=== PATIENT | male | born 1950 | race American Indian/Alaskan Native ===

== ENCOUNTER 2016-07-10 08:53 | Outpatient (CLI) | payer BC ==
[2016-07-10 09:23] LABS: Hematocrit 40.6 % (35.5-45.6); Hemoglobin 13.1 gm/dl (11.8-15.2)
[2016-07-10 09:41] LABS: Albumin 3.9 g/dL (3.9-5); BUN/Creatinine Ratio 8.97; Calcium 9.2 mg/dL (8.4-10.2); Chloride 100.2 mmol/L (98-107); Potassium 5.4 mmol/L (3.6-5.0)
== END 2016-07-10 08:54 | disposition home or self-care (01) ==
LOC: LAB 08:53
PROVIDERS: ATTEND Internal Medicine Nephrology
DX: N18.5 Chronic kidney disease, stage 5 (principal); E87.5 Hyperkalemia
CPT/HCPCS: 36415; 80048; 82040; 82570; 84100; 84156; 85014; 85018

== ENCOUNTER 2017-01-07 08:00 | Inpatient (IN) | payer BC, MEDICARE ==
--- NOTE | 2017-01-17 14:52 | Admit Criteria Form ---
Admission Criteria Documentation: AMBULATORY SURGERY EXCEPTION CRITERIA Ambulatory Surgery Exception Criteria ( Place 'X' for any and all applicable criteria): Surgery or procedure performed on ambulatory basis may require inpatient stay for[A] ANY ONE of the following(1)(2)(3)(4)(5)(6)(7)(8)(9): [] I. A preoperative situation, condition, or finding that warrants inpatient stay as indicated by ANY ONE of the following: [] a) Inpatient care needed because of severity of a disease or condition rather than the surgery (eg, severe cardiac or respiratory disease, severe infection) (15) (16 ) (17) (18) [] b) Emergent procedure (eg, angioplasty for acute ischemia)(19) [] c) Complex surgical approach or situation as indicated by ANY ONE of the following(3): [] i) Open approach needed instead of usual endoscopic, transcatheter, or other less invasive procedure [] ii) Difficult approach because of previous operation [] iii) Airway monitoring required after open neck procedures(20)(21) [] iv) Large mass requiring unusually extensive dissection [] v) Additional complicating feature requiring inpatient care (eg, drain management)(22(23): [] d) Major surgery in a pt with high anesthetic risk as indicated by ANY ONE of the following (2)(3)(5)(7)(8): [] i) ASA risk class III or higher (severe systemic disease impairing function) [D] [] ii) Advanced age (eg, older than 85 years)(14)(24) [] iii) Symptomatic heart failure(25) [] iv) Symptomatic asthma or COPD(8)(21) [] v) Morbid obesity with hemodynamic or respiratory problems(20)( 21)(26)(27) [] vi) Obstructive sleep apnea(20)(21) [] vii) Former premature infants who are younger than 60 weeks [] viii) High risk for severe postoperative abnormalities (eg, severe postoperative hypocalcemia after parathyroidectomy for severe hyperparathyroidism)(27)( 28) [] ix) Unstable angina(25) [] e) Drug-related risk requiring inpatient stay as indicated by ANY ONE of the following(5)(10)(14)(32)(33) [] i) Procedure requires discontinuing drugs or other therapy (eg , antiarrhythmic medication, antiseizure medication), which necessitates inpatient observation or treatment.(18)(31) [] ii) Major surgery and high risk drug use as indicated by ANY ONE of the following: [] 1) Active abuse of cocaine or similar drug [] 2) Monoamine oxidase inhibitor use [] 3) Other drug identified as posing risk [] f) Inadequate outpatient care situation as indicated by ANY ONE of the following(5)(10)(14)(32)(33) [] i) Patient lives remote from medical facility and procedure has urgent complication potential, and temporary nearby residence cannot be arranged [] ii) Patient will have postprocedure incapacitation and inadequate assistance at home, or alternative level of care cannot be arranged. [] iii) Patient will have long general anesthesia or procedure side effect resolution time, and competent person to stay with patient on first postoperative night at home or alternative level of care cannot be arranged. []iv) Other inadequate outpatient situation that cannot be handled by other means [] II. A perioperative event, condition, or finding that warrants inpatient stay as indicated by ANY ONE of the following (1)(2)(3): [] a) Inadequate physiologic recovery: cardiovascular, respiratory, or hemodynamic status not normal or near preoperative baseline(18) [] b) Hemodynamic instability [] c) Patient not alert with near normal or baseline mental status [] d) Temperature not normal or as expected and not appropriate for outpatient treatment of condition [] e) Ambulatory or appropriate activity level status not yet achieved post procedure [E](34)(35)(36) [] f) Operative site not appropriate (eg, unexpected or excessive drainage or bleeding) [] g) Postoperative effects not resolved or adequately managed (eg, significant pain or vomiting not appropriate for outpatient or next level of care)(10)(12) [] h) Complicating features requiring inpatient care as indicated by ANY ONE of the following(37): [] i) Severe complications of procedure (eg, bowel injury, airway compromise, vascular injury,severe hemorrhage) [] ii) Extensive (eg, dissection far beyond usual scope of procedure ) or prolonged (eg, 120 minutes beyond usual) surgery needed requiring inpatient postoperative care [] iii) Conversion to an open or complex procedure that requires inpatient care (eg, open vs laparoscopic cholecystectomy, abdominal vs vaginal hysterectomy)(38) [] iv) Comorbid condition or test result identified during or post procedure that requires inpatient care (7) [] v) Malignant hyperthermia(30) [] vi) Other complicating feature requiring inpatient care(22)(23) Inpatient stay may be needed until ALL of the following are present (1)(2)(3)(4) (5)(6)(10)(14)(33)(40): []a) Physiologic recovery: cardiovascular, respiratory, and hemodynamic status normal or near preoperative baseline []b) Hemodynamic stability []c) Patient alert, with near normal or baseline mental status []d) Temperature appropriate: patient afebrile or temperature appropriate for outpt treatment of condition []e) Activity level appropriate: ambulatory or appropriate activity level post procedure []f) Operative site appropriate as indicated by ALL of the following: []i) Site dry or with expected drainage []ii) Any blood noted is as expected for procedure. []g) Postoperative effects resolved or managed as indicated by ALL of the following: []i) Pain management appropriate for outpatient (or next level of) care(10) []ii) Minimal nausea and vomiting: if present, successfully treated with oral medication(12) []iii) Headache, dizziness, or drowsiness (if present) are mild. []h) Voiding status acceptable as indicated by ANY ONE of the following: []i) Voiding spontaneously []ii) No voiding but instructions given for follow-up in 6 to 8 hours []iii) Urinary catheter in place, and instructions given for follow-up []i) Complicating features requiring inpatient care manageable at a lower level of care(37) []j) Comorbid conditions manageable at a lower level of care(37) The original [employer] content created by [employer] has been revised. The portions of the content which have been revised are identified through the use of italic text or in bold, and [email or web address] has neither reviewed nor approved the modified material. All other unmodified content is copyright [employer]. Please see references footnoted in the original [employer] edition 2016
--- NOTE | 2017-01-18 09:26 | Admit Criteria Form ---
Admission Criteria Documentation: AMBULATORY SURGERY EXCEPTION CRITERIA Ambulatory Surgery Exception Criteria ( Place 'X' for any and all applicable criteria): Surgery or procedure performed on ambulatory basis may require inpatient stay for[A] ANY ONE of the following(1)(2)(3)(4)(5)(6)(7)(8)(9): [X] I. A preoperative situation, condition, or finding that warrants inpatient stay as indicated by ANY ONE of the following: [X] a) Inpatient care needed because of severity of a disease or condition rather than the surgery (eg, severe cardiac or respiratory disease, severe infection) (15) (16 ) (17) (18) [] b) Emergent procedure (eg, angioplasty for acute ischemia)(19) [] c) Complex surgical approach or situation as indicated by ANY ONE of the following(3): [] i) Open approach needed instead of usual endoscopic, transcatheter, or other less invasive procedure [] ii) Difficult approach because of previous operation [] iii) Airway monitoring required after open neck procedures(20)(21) [] iv) Large mass requiring unusually extensive dissection [] v) Additional complicating feature requiring inpatient care (eg, drain management)(22(23): [] d) Major surgery in a pt with high anesthetic risk as indicated by ANY ONE of the following (2)(3)(5)(7)(8): [] i) ASA risk class III or higher (severe systemic disease impairing function) [D] [] ii) Advanced age (eg, older than 85 years)(14)(24) [] iii) Symptomatic heart failure(25) [] iv) Symptomatic asthma or COPD(8)(21) [] v) Morbid obesity with hemodynamic or respiratory problems(20)( 21)(26)(27) [] vi) Obstructive sleep apnea(20)(21) [] vii) Former premature infants who are younger than 60 weeks [] viii) High risk for severe postoperative abnormalities (eg, severe postoperative hypocalcemia after parathyroidectomy for severe hyperparathyroidism)(27)( 28) [] ix) Unstable angina(25) [] e) Drug-related risk requiring inpatient stay as indicated by ANY ONE of the following(5)(10)(14)(32)(33) [] i) Procedure requires discontinuing drugs or other therapy (eg , antiarrhythmic medication, antiseizure medication), which necessitates inpatient observation or treatment.(18)(31) [] ii) Major surgery and high risk drug use as indicated by ANY ONE of the following: [] 1) Active abuse of cocaine or similar drug [] 2) Monoamine oxidase inhibitor use [] 3) Other drug identified as posing risk [] f) Inadequate outpatient care situation as indicated by ANY ONE of the following(5)(10)(14)(32)(33) [] i) Patient lives remote from medical facility and procedure has urgent complication potential, and temporary nearby residence cannot be arranged [] ii) Patient will have postprocedure incapacitation and inadequate assistance at home, or alternative level of care cannot be arranged. [] iii) Patient will have long general anesthesia or procedure side effect resolution time, and competent person to stay with patient on first postoperative night at home or alternative level of care cannot be arranged. []iv) Other inadequate outpatient situation that cannot be handled by other means [] II. A perioperative event, condition, or finding that warrants inpatient stay as indicated by ANY ONE of the following (1)(2)(3): [] a) Inadequate physiologic recovery: cardiovascular, respiratory, or hemodynamic status not normal or near preoperative baseline(18) [] b) Hemodynamic instability [] c) Patient not alert with near normal or baseline mental status [] d) Temperature not normal or as expected and not appropriate for outpatient treatment of condition [] e) Ambulatory or appropriate activity level status not yet achieved post procedure [E](34)(35)(36) [] f) Operative site not appropriate (eg, unexpected or excessive drainage or bleeding) [] g) Postoperative effects not resolved or adequately managed (eg, significant pain or vomiting not appropriate for outpatient or next level of care)(10)(12) [] h) Complicating features requiring inpatient care as indicated by ANY ONE of the following(37): [] i) Severe complications of procedure (eg, bowel injury, airway compromise, vascular injury,severe hemorrhage) [] ii) Extensive (eg, dissection far beyond usual scope of procedure ) or prolonged (eg, 120 minutes beyond usual) surgery needed requiring inpatient postoperative care [] iii) Conversion to an open or complex procedure that requires inpatient care (eg, open vs laparoscopic cholecystectomy, abdominal vs vaginal hysterectomy)(38) [] iv) Comorbid condition or test result identified during or post procedure that requires inpatient care (7) [] v) Malignant hyperthermia(30) [] vi) Other complicating feature requiring inpatient care(22)(23) Inpatient stay may be needed until ALL of the following are present (1)(2)(3)(4) (5)(6)(10)(14)(33)(40): []a) Physiologic recovery: cardiovascular, respiratory, and hemodynamic status normal or near preoperative baseline []b) Hemodynamic stability []c) Patient alert, with near normal or baseline mental status []d) Temperature appropriate: patient afebrile or temperature appropriate for outpt treatment of condition []e) Activity level appropriate: ambulatory or appropriate activity level post procedure []f) Operative site appropriate as indicated by ALL of the following: []i) Site dry or with expected drainage []ii) Any blood noted is as expected for procedure. []g) Postoperative effects resolved or managed as indicated by ALL of the following: []i) Pain management appropriate for outpatient (or next level of) care(10) []ii) Minimal nausea and vomiting: if present, successfully treated with oral medication(12) []iii) Headache, dizziness, or drowsiness (if present) are mild. []h) Voiding status acceptable as indicated by ANY ONE of the following: []i) Voiding spontaneously []ii) No voiding but instructions given for follow-up in 6 to 8 hours []iii) Urinary catheter in place, and instructions given for follow-up []i) Complicating features requiring inpatient care manageable at a lower level of care(37) []j) Comorbid conditions manageable at a lower level of care(37) The original [employer] content created by [employer] has been revised. The portions of the content which have been revised are identified through the use of italic text or in bold, and [employer] has neither reviewed nor approved the modified material. All other unmodified content is copyright [employer]. Please see references footnoted in the original [employer] edition 2016 Admission Criteria Met: Yes
--- NOTE | 2017-01-18 09:53 | Anesthesia Consultation ---
Anesthesia Consult and Med Hx Date of service: 01/18/17 - Airway Anesthetic Teeth Evaluation: Dentures (upper) ROM Head & Neck: Adequate Mental/Hyoid Distance: Adequate Mallampati Class: Class II Intubation Access Assessment: Probably Good - Pulmonary Exam CTA: Yes - Cardiac Exam Cardiac Exam: RRR - Pre-Operative Health Status ASA Pre-Surgery Classification: ASA2 Proposed Anesthetic Plan: General - Pulmonary Hx Smoking: No Hx Sleep Apnea: No (MILLER PRE SCREEN HIGH RISK) - Cardiovascular System Hx Hypertension: Yes (X 40 YRS) Hx Heart Attack/AMI: No - Central Nervous System Hx Neuromuscular Disorder: No (Gout) Hx Seizures: No CVA: No - Gastrointestinal Hx Gastroesophageal Reflux Disease: No - Endocrine Hx Renal Disease: No Hx Liver Disease: No Hx Non-Insulin Dependent Diabetes: No - Hematic Hx Anemia: No Hx Sickle Cell Disease: No - Other Systems Hx Alcohol Use: No Hx Cancer: Yes (prostate ca) Hx Obesity: Yes - Additional Comments Anesthesia Medical History Comments: NAC
[2017-01-18 09:59] LABS: Basophils % (Auto) 1.2 % (0.0-1.8); Eosinophils % (Auto) 5.1 % (0.0-4.3); Hematocrit 42.4 % (35.5-45.6); Hemoglobin 13.9 gm/dl (11.8-15.2); Mean Corpuscular HGB Conc 33 % (32-34); Mean Corpuscular Hemoglobin 29 pg (28-32); Mean Corpuscular Volume 89 fl (84-94); Platelet Count 338 K/mm3 (140-440); Red Blood Count 4.78 M/mm3 (3.65-5.03); Red Cell Distribution Width 14.4 % (13.2-15.2)
[2017-01-18 10:25] LABS: BUN/Creatinine Ratio 9.01; Bilirubin,Total 0.3 mg/dL (0.1-1.2); Calcium 9.2 mg/dL (8.4-10.2); Chloride 103.7 mmol/L (98-107); Total Protein 8.2 g/dL (6.3-8.2)
[2017-01-18 10:35] LABS: INR 1.04 (0.87-1.13)
[2017-01-18 10:38] LABS: Partial Thromboplastin Time 30.9 Sec. (24.2-36.6)
[2017-01-21] MEDS ORDERED: ANCEF/STERILE WATER 2 GM/20 ML IV NR (00:01)
[2017-01-21] MEDS ORDERED: VERSED IV NR (05:00)
[2017-01-21] MEDS ORDERED: PEPCID PO NR (05:00)
[2017-01-21] MEDS ORDERED: NACL BACTERIOSTATIC INFILTRATI ONE (06:36)
[2017-01-21] MEDS: NACL 0.9% 1000 ML 1,000 ML IV SCH ×2 (07:10→22:10)
[2017-01-21] MEDS ORDERED: DIPRIVAN 10 MG/ML IV ONE (07:30)
[2017-01-21] MEDS ORDERED: DILAUDID ONE (07:31)
[2017-01-21] MEDS ORDERED: DILAUDID IV PRN ×2 (07:35→20:07)
--- NOTE | 2017-01-21 07:35 | Anesthesia Day of Surgery ---
Anesthesia Day of Surgery - Day of Surgery Patient Examined: Yes Patient H&P Reviewed: Yes Patient is NPO: Yes
[2017-01-21] MEDS ORDERED: MARCAINE-EPI 0.5%-1:200,000 INFILTRATI ONE (07:44)
[2017-01-21] MEDS ORDERED: MARCAINE-EPI/PF 0.5%-1:200,000 INFILTRATI ONE (07:44)
[2017-01-21] MEDS ORDERED: DECADRON ONE ×2 (07:44→09:35)
[2017-01-21] MEDS ORDERED: XYLOCAINE 1% 20 mL ONE (07:44)
[2017-01-21] MEDS ORDERED: CALCIUM CHLORIDE IV ONE ×2 (07:56→10:51)
[2017-01-21] MEDS ORDERED: ACD-A 500 ML IV ONE (07:56)
[2017-01-21] MEDS ORDERED: THROMBIN (BOVINE) TP ONE ×2 (07:57→10:51)
[2017-01-21] MEDS ORDERED: SUBLIMAZE IV ONE (08:00)
[2017-01-21] MEDS ORDERED: NEURONTIN PO NR (08:00)
[2017-01-21] MEDS ORDERED: ZOFRAN IV PRN ×2 (08:00→10:55)
[2017-01-21] MEDS ORDERED: NACL 0.9% 1000 ML 1,000 ML ONE ×2 (08:34→10:47)
[2017-01-21] MEDS ORDERED: ZEMURON IV ONE (08:34)
[2017-01-21] MEDS ORDERED: XYLOCAINE MPF 2% ONE (08:34)
[2017-01-21] MEDS ORDERED: ePHEDrine SULFATE ONE (09:01)
[2017-01-21] MEDS ORDERED: ZOFRAN ONE (09:35)
[2017-01-21] MEDS ORDERED: ROBINUL ONE (09:35)
[2017-01-21] MEDS ORDERED: NEOSTIGMINE ONE (09:35)
--- NOTE | 2017-01-21 10:49 | Short Stay Summary ---
Short Stay Documentation Date of service: 01/21/17 - History H&P: obtained from office - Allergies and Medications Current Medications: Allergies No Known Allergies Allergy (Verified 01/04/17 17:13) Home Medications Medication Instructions Recorded Confirmed Last Taken Type Furosemide [Lasix] 80 mg PO 4XW 01/04/17 01/21/17 01/21/17 04:00 History cloNIDine [Catapres] 0.1 mg PO TID 01/04/17 01/21/17 01/21/17 04:00 History Colchicine [Colcrys] 0.6 mg PO TID PRN 01/21/17 01/21/17 01/07/17 History Mv-Mn/FA/Vit K/Lycop/Lut/Coq10 1 each PO QDAY 01/21/17 01/21/17 01/14/17 History [Daily Multivitamin Capsule] Terazosin HCl 10 mg PO QHS 01/21/17 01/21/17 01/21/17 04:00 History amLODIPine [Norvasc] 10 mg PO BID 01/21/17 01/21/17 01/21/17 04:00 History Active Medications Cefazolin Sodium (Ancef/Sterile Water 2 Gm/20 Ml) 2 gm IV PREOP NR Stop: 01/21/17 23:00 Famotidine (Pepcid) 20 mg PO PREOP NR Stop: 01/21/17 12:00 Last Admin: 01/21/17 07:10 Dose: 20 mg Gabapentin (Neurontin) 300 mg PO PREOP NR Stop: 01/21/17 12:00 Last Admin: 01/21/17 07:43 Dose: 300 mg Hydromorphone HCl (Dilaudid) 0.5 mg IV Q10MIN PRN PRN Reason: Pain , Severe (7-10) Stop: 01/21/17 15:00 Sodium Chloride (Nacl 0.9% 1000 Ml) 1,000 mls @ 100 mls/hr IV DIRECT ROGE Last Admin: 01/21/17 07:10 Dose: 100 mls/hr Midazolam HCl (Versed) 2 mg IV PREOP NR Stop: 01/21/17 15:00 Last Admin: 01/21/17 07:52 Dose: 2 mg - Brief post op/procedure progress note Date of procedure: 01/21/17 Pre-op diagnosis: prostate cancer Post-op diagnosis: same Procedure: robotic prostatectomy Anesthesia: PAMELLAA Surgeon: VARUN GONSALEZ Pants Maker: MARIO GUZMAN Estimated blood loss: other (300cc) Pathology: list (prostate) Specimen disposition: to lab Condition: stable - Hospital course Hospital course: myke cartwright, post op info on chart at bedside jordy removed seen by nephrology for high K+ (treated) dc home - Disposition Condition at discharge: Stable Disposition: DC-01 TO HOME OR SELFCARE Short Stay Discharge Plan Additional Instructions: Must crush meds for now. Do not take whole pills. No heavy lifting, pushing, pulling. Follow up with: PRIMARY CARE, [Primary Care Provider] - 7 Days
[2017-01-21] MEDS ORDERED: NACL 0.9% IR ONE ×2 (10:50→10:51)
[2017-01-21] MEDS ORDERED: ACD-A IV ONE (10:50)
[2017-01-21] MEDS ORDERED: WATER FOR IRRIG STERILE IR ONE (10:50)
[2017-01-21] MEDS ORDERED: TYLENOL PO PRN (10:55)
[2017-01-21] MEDS ORDERED: AMBIEN PO PRN (10:55)
[2017-01-21] MEDS ORDERED: NORCO 5/325 PO PRN (10:55)
[2017-01-21] MEDS ORDERED: COLCRYS PO PRN (10:59)
[2017-01-21] MEDS ORDERED: NACL 0.9% 1000 ML 1,000 ML IV SCH (11:00)
[2017-01-21] MEDS ORDERED: LASIX PO SCH (11:00)
--- NOTE | 2017-01-21 11:48 | Operative Report ---
PREOPERATIVE DIAGNOSES: Prostate cancer, [place] 6. POSTOPERATIVE DIAGNOSES: Prostate cancer, [place] 6. SECONDARY DIAGNOSES: Hypertension, renal insufficiency. PROCEDURE: Robotic-assisted laparoscopic prostatectomy. SURGEON: Shahid Toribio MD VISUAL MERCHANDISING ASSISTANT: Des Harrison. ANESTHESIA: General. ESTIMATED BLOOD LOSS: 300 mL. FLUIDS: Crystalloid 150 mL of Cell Saver. COMPLICATIONS: No complications. DRAINS: Abelardo-Elmore drain x 1. INDICATIONS: This patient is a 66-year-old gentleman seen in the office for an elevated PSA of 6.3 in 2015. He underwent transrectal ultrasound and biopsies of prostate. He is found to have [place] 6 adenocarcinoma of the prostate. At that time, he elected active surveillance treatment for PSA above 10. However, in the interim, the patient developed renal insufficiency and was undergoing evaluation for kidney transplant at [facility] (contact his Leeann Cole, ). The patient was seen by the transplant team earlier this year. They indicated he needs definitive therapy of his cancer before they could proceed. We discussed options with the patient and he agreed to proceed with surgical intervention. His primary care physician is Dr. Shaun Ayoub. DESCRIPTION OF PROCEDURE: The patient was taken to the operative suite, placed in a supine position. After adequate general anesthesia, placed in a modified dorsal lithotomy position, prepped and draped in sterile fashion. Grimes catheter was placed on the operative field. Towel clips were placed. A 1 cm incision was made in the skin at the supraumbilical area anterior traction. Veress needle was used for drop test, which was negative. Opening pressure was 2 cm of water, CO2 insufflation to 15 cm of water was performed without difficulty. Abdominal wall was marked from the pubic symphysis to the midline in the cephalad position 15 cm and then 9 cm lateral. Additional 9 cm lateral was used for placement of the robotic and helper ports. A 10 mm helper port on the right as well as 5 mm port just above the midline. Using 0-degree lens the camera port was placed under direct vision without difficulty. No intra-abdominal injury. No signs of metastasis. The rest of the ports were placed under direct vision. The patient was then placed in exaggerated Trendelenburg position. The second arch behind the bladder was identified and scored exposing the seminal vesicles and vas deferens, which were dissected out and vas deferens clamped and cut. The posterior dissection to the apex of the prostate was performed without difficulty. Copious irrigation was performed. Adequate hemostasis was achieved. Next, attention was taken to the anterior abdominal wall, which was scored lateral to the lateral umbilical ligament and then across the midline exposing the pubic rami. Bladder flap was dropped exposing the endopelvic fascia, which was opened bilaterally. Dorsal vein complex was controlled using a 45 mm vascular stapler. The endopelvic fascia was opened bilaterally exposing the bladder neck, which was transected anteriorly exposing the Grimes catheter. Anterior traction was then applied to the Grimes to allow posterior dissection of the bladder neck, which exposed the seminal vesicles, vas deferens. The ureteral orifices could be appreciated and were uninjured. Lateral pedicles were controlled with a 45 mm vascular stapler. The neurovascular bundle could not be appreciated bilaterally. Sharp dissection was used to dissect the rest of the lateral pedicles to the apex of the prostate in an athermal fashion. Prostate was removed, placed in the EndoCatch bag. Copious irrigation again was performed. Adequate hemostasis was achieved. The bladder neck was reconstructed to allow placement of new 18-Swiss Grimes catheter. Reconstruction was performed at the 5 o'clock and 7 o'clock positions using 2-0 Vicryl in interrupted fashion. Double arm V-Loc was used for running anastomosis starting at the 6 o'clock position of the bladder and urethra. A new Grimes catheter was advanced. The anastomosis was cinched tight. A 15 mL of water in the balloon irrigated, no leak. The V-Loc stitch was placed in suprapubic and the posterior rectus fascia to aid with continents. Platelet membrane was wrapped around the urethra as well as platelet-rich plasma was injected and platelet poor plasma around the urethra. A 10 mm Abelardo-Elmore drain was brought out through the left-sided port. Robotic cart was undocked. The supraumbilical incision was extended to allow removal of the prostate. Rectus fascia was then closed with #1 Vicryl in a [id number] fashion. Skin was closed with 3-0 Vicryl in interrupted fashion. Grimes catheter site port was tied over and secured with 0 silk in interrupted fashion. The patient tolerated the procedure well. He was extubated, taken to recovery room. He will be observed overnight and go home on [facility] and [facility]. JOB# [id number] GIL/VIDA
[2017-01-21 12:16] LABS: Basophils % (Auto) 0.4 % (0.0-1.8); Eosinophils % (Auto) 0.5 % (0.0-4.3); Hematocrit 39.4 % (35.5-45.6); Hemoglobin 12.8 gm/dl (11.8-15.2); Mean Corpuscular HGB Conc 32 % (32-34); Mean Corpuscular Hemoglobin 29 pg (28-32); Mean Corpuscular Volume 90 fl (84-94); Platelet Count 328 K/mm3 (140-440); Red Blood Count 4.39 M/mm3 (3.65-5.03); Red Cell Distribution Width 14.5 % (13.2-15.2); White Blood Count 15.2 K/mm3 (4.5-11.0)
[2017-01-21 12:40] LABS: BUN/Creatinine Ratio 8.64; Calcium 8.4 mg/dL (8.4-10.2); Chloride 101.9 mmol/L (98-107); Potassium 4.6 mmol/L (3.6-5.0)
[2017-01-21] MEDS: MORPHINE IV PRN ×3 (13:43→20:01)
[2017-01-21] MEDS: ANCEF/NS 1 GM/50 ML 1 GM/50 ML BAG IV SCH ×2 (13:44→21:27)
[2017-01-21] MEDS: CATAPRES PO SCH ×2 (14:00→20:02)
--- NOTE | 2017-01-21 16:31 | Post Anesthesia Evaluation ---
- Post Anesthesia Evaluation Patient Participated: Yes Airway Patent: Yes Stable Respiratory Function: Yes Nausea/Vomiting: No Temp > 96.8F: Yes Pain Manageable: Yes Adequeate Hydration: Yes Anesthesia Complications: No Block Receding Appropriately: Not Applicable Patient on Ventilator: No
[2017-01-21] MEDS ORDERED: ATIVAN PO PRN (20:05)
--- NOTE | 2017-01-21 20:34 | Consultation ---
History of Present Illness - Reason for Consult Consult date: 01/21/17 Medical management Requesting physician: VARUN GONSALEZ - History of Present Illness S/p Robotic prostatectomy-post op doing well.No complications Past History Past Medical History: hypertension, renal failure Social history: no significant social history, lives with family Family history: hypertension Medications and Allergies Allergies Allergy/AdvReac Type Severity Reaction Status Date / Time No Known Allergies Allergy Verified 01/04/17 17:13 Home Medications Medication Instructions Recorded Confirmed Last Taken Type Furosemide [Lasix] 80 mg PO 4XW 01/04/17 01/21/17 01/21/17 04:00 History cloNIDine [Catapres] 0.1 mg PO TID 01/04/17 01/21/17 01/21/17 04:00 History Colchicine [Colcrys] 0.6 mg PO TID PRN 01/21/17 01/21/17 01/07/17 History Mv-Mn/FA/Vit K/Lycop/Lut/Coq10 1 each PO QDAY 01/21/17 01/21/17 01/14/17 History [Daily Multivitamin Capsule] Terazosin HCl 10 mg PO QHS 01/21/17 01/21/17 01/21/17 04:00 History amLODIPine [Norvasc] 10 mg PO BID 01/21/17 01/21/17 01/21/17 04:00 History Active Meds: Active Medications Acetaminophen (Tylenol) 650 mg PO Q4H PRN PRN Reason: Pain, Mild (1-3)/Fever > 100.5 Acetaminophen/Hydrocodone Bitart ([place] 5/325) 2 each PO Q4H PRN PRN Reason: Pain, Moderate (4-6) Amlodipine Besylate (Norvasc) 10 mg PO BID ROGE Cefazolin Sodium (Ancef/Sterile Water 2 Gm/20 Ml) 2 gm IV PREOP NR Stop: 01/21/17 23:00 Clonidine HCl (Catapres) 0.1 mg PO TID RGOE Last Admin: 01/21/17 20:02 Dose: 0.1 mg Colchicine (Colcrys) 0.6 mg PO TID PRN PRN Reason: GOUT Hydromorphone HCl (Dilaudid) 1 mg IV Q4H PRN PRN Reason: Pain Sodium Chloride (Nacl 0.9% 1000 Ml) 1,000 mls @ 100 mls/hr IV DIRECT ROGE Last Admin: 01/21/17 07:10 Dose: 100 mls/hr Sodium Chloride (Nacl 0.9% 1000 Ml) 1,000 mls @ 100 mls/hr IV DIRECT ROGE Lorazepam (Ativan) 0.5 mg PO Q8H PRN PRN Reason: Anxiety Morphine Sulfate (Morphine) 4 mg IV Q4H PRN PRN Reason: Pain , Severe (7-10) Last Admin: 01/21/17 20:01 Dose: 4 mg Multivitamins/Minerals (Theragran-M Tab) 1 each PO QDAY ROGE Ondansetron HCl (Zofran) 4 mg IV Q8H PRN PRN Reason: Nausea And Vomiting Last Admin: 01/21/17 13:43 Dose: 4 mg Prazosin HCl (Minipress) 5 mg PO HS ROGE Zolpidem Tartrate (Ambien) 5 mg PO QHS PRN PRN Reason: Sleep Review of Systems All systems: negative Exam - Constitutional Vitals: Temp Pulse Resp BP Pulse Ox 97.4 F L 85 18 162/79 98 01/21/17 19:50 01/21/17 20:02 01/21/17 20:01 01/21/17 20:02 01/21/17 19:50 General appearance: Present: no acute distress, well-nourished - EENT Eyes: Present: PERRL ENT: hearing intact, clear oral mucosa - Neck Neck: Present: supple, normal ROM - Respiratory Respiratory effort: normal Respiratory: bilateral: CTA - Cardiovascular Heart Sounds: Present: S1 & S2. Absent: rub, click - Extremities Extremities: pulses symmetrical, No edema Peripheral Pulses: within normal limits - Abdominal General gastrointestinal: Present: soft, non-tender, non-distended, normal bowel sounds Male genitourinary: Present: normal - Integumentary Integumentary: Present: clear, warm, dry - Musculoskeletal Musculoskeletal: gait normal, strength equal bilaterally - Psychiatric Psychiatric: appropriate mood/affect, intact judgment & insight - Neurologic Neurologic: CNII-XII intact, moves all extremities Results - Labs CBC & Chem 7: 01/21/17 12:12 01/22/17 02:46 Labs: Abnormal lab results 01/21/17 01/21/17 Range/Units 12:12 12:12 WBC 15.2 H (4.5-11.0) K/mm3 Seg Neutrophils % 82.5 H (40.0-70.0) % Seg Neutrophils # 12.5 H (1.8-7.7) K/mm3 Carbon Dioxide 19 L (22-30) mmol/L BUN 51 H (9-20) mg/dL Creatinine 5.9 H (0.8-1.5) mg/dL Glucose 180 H (75-100) mg/dL Short CBC 01/21/17 Range/Units 12:12 WBC 15.2 H (4.5-11.0) K/mm3 Hgb 12.8 (11.8-15.2) gm/dl Hct 39.4 (35.5-45.6) % Plt Count 328 (140-440) K/mm3 [facility] 01/21/17 01/22/17 12:12 02:46 Sodium 139 138 Potassium 4.6 5.2 H Chloride 101.9 100.6 Carbon Dioxide 19 L 19 L BUN 51 H 54 H Creatinine 5.9 H 5.8 H Glucose 180 H 135 H Calcium 8.4 8.9 Assessment and Plan - Patient Problems (1) Status post robot-assisted surgical procedure Current Visit: Yes Status: Acute Plan to address problem: s/p robotic Prostatectomy-Doing well (2) HTN (hypertension) Current Visit: Yes Status: Chronic Qualifiers: Hypertension type: essential hypertension Qualified Code(s): I10 - Essential (primary) hypertension Plan to address problem: Cont Clonidine and amlodipine (3) CKD (chronic kidney disease) Current Visit: Yes Status: Chronic Qualifiers: Chronic kidney disease stage: stage 5, not on chronic dialysis Qualified Code(s): N18.5 - Chronic kidney disease, stage 5 Plan to address problem: Patient may end up needing HD in near future. To F/u with Nephrology GIULIANO (4) Gout Current Visit: Yes Status: Inactive Qualifiers: Gout site: G Gout etiology: G Encounter type: E Chronicity: C Laterality: L Presence of tophus: P Plan to address problem: Colchicine if necessary (5) CHF (congestive heart failure) Current Visit: Yes Status: Chronic Qualifiers: Congestive heart failure type: C Plan to address problem: On Lasix.Will hold for now (6) DVT prophylaxis Current Visit: Yes Status: Acute Plan to address problem: On SCD's
[2017-01-21] MEDS: NORVASC PO SCH (21:26)
[2017-01-21] MEDS ORDERED: NON-FORMULARY (Terazosin Hcl [Terazosin Hcl] 10 MG) PO SCH (22:00)
[2017-01-21] MEDS ORDERED: MINIPRESS PO SCH (22:00)
[2017-01-22 03:52] LABS: BUN/Creatinine Ratio 9.31; Calcium 8.9 mg/dL (8.4-10.2); Chloride 100.6 mmol/L (98-107); Potassium 5.2 mmol/L (3.6-5.0)
[2017-01-22 09:00] LABS: Basophils % (Auto) 0.2 % (0.0-1.8); Hematocrit 36.5 % (35.5-45.6); Hemoglobin 12.2 gm/dl (11.8-15.2); Mean Corpuscular HGB Conc 33 % (32-34); Mean Corpuscular Hemoglobin 30 pg (28-32); Mean Corpuscular Volume 89 fl (84-94); Platelet Count 291 K/mm3 (140-440); Red Blood Count 4.12 M/mm3 (3.65-5.03); Red Cell Distribution Width 14.3 % (13.2-15.2); White Blood Count 18.2 K/mm3 (4.5-11.0)
[2017-01-22 09:25] LABS: Albumin 3.5 g/dL (3.9-5); Albumin/Globulin Ratio 0.9 %; BUN/Creatinine Ratio 9.66; Bilirubin,Total 0.2 mg/dL (0.1-1.2); Calcium 8.6 mg/dL (8.4-10.2); Chloride 102.4 mmol/L (98-107); Potassium 5.4 mmol/L (3.6-5.0); Total Protein 7.2 g/dL (6.3-8.2)
[2017-01-22] MEDS ORDERED: VIT K PO SCH (10:00)
[2017-01-22] MEDS ORDERED: LYCOP PO SCH (10:00)
[2017-01-22] MEDS ORDERED: COQ10 PO SCH (10:00)
[2017-01-22] MEDS ORDERED: MV MN PO SCH (10:00)
[2017-01-22] MEDS ORDERED: [UNRECOGNIZED DRUG - OTHER] PO SCH (10:00)
[2017-01-22] MEDS ORDERED: LUT PO SCH (10:00)
[2017-01-22] MEDS ORDERED: THERAGRAN-M Tab PO SCH (10:00)
--- NOTE | 2017-01-22 10:39 | Progress Note ---
Subjective Date of service: 01/22/17 Interval history: 1st POD after robotic prostatectomy Patient in in the bed, comfortable. Pain is well controlled with pain meds. No nausea or vomiting. No anesthesia complications Objective - Constitutional Vitals: Vital Signs - 12hr 01/21/17 01/22/17 01/22/17 23:34 03:50 08:00 Temperature 97.8 F 98.1 F 98.7 F Pulse Rate 75 69 69 Respiratory 20 20 20 Rate Blood Pressure 134/72 136/73 139/76 O2 Sat by Pulse 97 97 98 Oximetry 01/22/17 09:02 Temperature Pulse Rate Respiratory 20 Rate Blood Pressure O2 Sat by Pulse Oximetry - Labs CBC & Chem 7: 01/22/17 08:14 01/22/17 08:14 Labs: Abnormal lab results 01/21/17 01/21/17 01/22/17 Range/Units 12:12 12:12 02:46 WBC 15.2 H (4.5-11.0) K/mm3 Lymph % (Auto) (13.4-35.0) % [place] # (0.0-0.8) K/mm3 Seg Neutrophils % 82.5 H (40.0-70.0) % Seg Neutrophils # 12.5 H (1.8-7.7) K/mm3 Potassium 5.2 H (3.6-5.0) mmol/L Carbon Dioxide 19 L 19 L (22-30) mmol/L BUN 51 H 54 H (9-20) mg/dL Creatinine 5.9 H 5.8 H (0.8-1.5) mg/dL Glucose 180 H 135 H (75-100) mg/dL Albumin (3.9-5) g/dL 01/22/17 01/22/17 Range/Units 08:14 08:14 WBC 18.2 H (4.5-11.0) K/mm3 Lymph % (Auto) 6.5 L (13.4-35.0) % [place] # 1.1 H (0.0-0.8) K/mm3 Seg Neutrophils % 87.1 H (40.0-70.0) % Seg Neutrophils # 15.8 H (1.8-7.7) K/mm3 Potassium 5.4 H (3.6-5.0) mmol/L Carbon Dioxide 18 L (22-30) mmol/L BUN 57 H (9-20) mg/dL Creatinine 5.9 H (0.8-1.5) mg/dL Glucose 120 H (75-100) mg/dL Albumin 3.5 L (3.9-5) g/dL
[2017-01-22] MEDS: NORVASC PO SCH (11:54)
[2017-01-22] MEDS: CATAPRES PO SCH ×2 (11:54→15:19)
--- NOTE | 2017-01-22 12:24 | Progress Note ---
Assessment and Plan Assessment and plan: 1. Prostate cancer - status post robotic prostatectomy 01/21; urology managing 2. Hypertension - BP well controlled on clonidine and amlodipine 3. Gout - continue colchicine 4. CKD with kyperkalemia - Cr likely at baseline, but K+ slightly elevated; nephrology consulted for management 5. DVT prophylaxis - SCDs; pharmacologic agent when okay with surgeon History Interval history: s/p prostatectomy Hospitalist Physical - Constitutional Vitals: Temp Pulse Resp BP Pulse Ox 98.7 F 64 20 127/69 98 01/22/17 08:00 01/22/17 11:54 01/22/17 09:02 01/22/17 11:54 01/22/17 08:00 General appearance: Present: no acute distress - EENT Eyes: Present: PERRL, EOM intact - Respiratory Respiratory effort: normal Respiratory: bilateral: CTA, negative: rhonchi, wheezing - Cardiovascular Rhythm: regular Heart Sounds: Present: S1 & S2. Absent: systolic murmur - Extremities Extremities: no ischemia - Abdominal General gastrointestinal: soft, non-tender, non-distended, normal bowel sounds - Neurologic Neurologic: no focal deficits Results - Labs CBC & Chem 7: 01/22/17 08:14 01/22/17 08:14 Labs: Laboratory Last Values WBC 18.2 K/mm3 (4.5-11.0) H 01/22/17 08:14 RBC 4.12 M/mm3 (3.65-5.03) 01/22/17 08:14 Hgb 12.2 gm/dl (11.8-15.2) 01/22/17 08:14 Hct 36.5 % (35.5-45.6) 01/22/17 08:14 MCV 89 fl (84-94) 01/22/17 08:14 MCH 30 pg (28-32) 01/22/17 08:14 MCHC 33 % (32-34) 01/22/17 08:14 RDW 14.3 % (13.2-15.2) 01/22/17 08:14 Plt Count 291 K/mm3 (140-440) 01/22/17 08:14 Lymph % (Auto) 6.5 % (13.4-35.0) L 01/22/17 08:14 [place] % (Auto) 6.2 % (0.0-7.3) 01/22/17 08:14 Eos % (Auto) 0.0 % (0.0-4.3) 01/22/17 08:14 Baso % (Auto) 0.2 % (0.0-1.8) 01/22/17 08:14 Lymph # 1.2 K/mm3 (1.2-5.4) 01/22/17 08:14 [place] # 1.1 K/mm3 (0.0-0.8) H 01/22/17 08:14 Eos # 0.0 K/mm3 (0.0-0.4) 01/22/17 08:14 Baso # 0.0 K/mm3 (0.0-0.1) 01/22/17 08:14 Seg Neutrophils % 87.1 % (40.0-70.0) H 01/22/17 08:14 Seg Neutrophils # 15.8 K/mm3 (1.8-7.7) H 01/22/17 08:14 PT 13.5 Sec. (12.2-14.9) 01/18/17 09:30 INR 1.04 (0.87-1.13) 01/18/17 09:30 APTT 30.9 Sec. (24.2-36.6) 01/18/17 09:30 Sodium 139 mmol/L (137-145) 01/22/17 08:14 Potassium 5.4 mmol/L (3.6-5.0) H 01/22/17 08:14 Chloride 102.4 mmol/L (98-107) 01/22/17 08:14 Carbon Dioxide 18 mmol/L (22-30) L 01/22/17 08:14 Anion Gap 24 mmol/L 01/22/17 08:14 BUN 57 mg/dL (9-20) H 01/22/17 08:14 Creatinine 5.9 mg/dL (0.8-1.5) H 01/22/17 08:14 Estimated GFR 12 ml/min 01/22/17 08:14 BUN/Creatinine Ratio 9.66 % 01/22/17 08:14 Glucose 120 mg/dL (75-100) H 01/22/17 08:14 Calcium 8.6 mg/dL (8.4-10.2) 01/22/17 08:14 Total Bilirubin 0.20 mg/dL (0.1-1.2) 01/22/17 08:14 AST 18 units/L (5-40) 01/22/17 08:14 ALT 7 units/L (7-56) 01/22/17 08:14 Alkaline Phosphatase 69 units/L (35-129) 01/22/17 08:14 Total Protein 7.2 g/dL (6.3-8.2) 01/22/17 08:14 Albumin 3.5 g/dL (3.9-5) L 01/22/17 08:14 Albumin/Globulin Ratio 0.9 % 01/22/17 08:14 Blood Type A POSITIVE 01/21/17 06:40 Antibody Screen Negative 01/21/17 06:40
[2017-01-22 15:21] VITALS: BP 142/70
--- NOTE | 2017-01-22 16:01 | Consultation ---
History of Present Illness - Reason for Consult Consult date: 01/22/17 chronic renal failure - History of Present Illness Mr. Lopez is a 66yo with Stage IV/V CKD followed by [facility] (Dr. Archer) who is admitted robotic prostatectomy. Patient has no complaints at time of visit. He denies SOB, nausea, vomiting, loss of appetite. Past History Past Medical History: hypertension, renal failure Social history: no significant social history, lives with family Family history: hypertension Medications and Allergies Allergies Allergy/AdvReac Type Severity Reaction Status Date / Time No Known Allergies Allergy Verified 01/04/17 17:13 Home Medications Medication Instructions Recorded Confirmed Last Taken Type Furosemide [Lasix] 80 mg PO 4XW 01/04/17 01/21/17 01/21/17 04:00 History cloNIDine [Catapres] 0.1 mg PO TID 01/04/17 01/21/17 01/21/17 04:00 History Colchicine [Colcrys] 0.6 mg PO TID PRN 01/21/17 01/21/17 01/07/17 History Mv-Mn/FA/Vit K/Lycop/Lut/Coq10 1 each PO QDAY 01/21/17 01/21/17 01/14/17 History [Daily Multivitamin Capsule] Terazosin HCl 10 mg PO QHS 01/21/17 01/21/17 01/21/17 04:00 History amLODIPine [Norvasc] 10 mg PO BID 01/21/17 01/21/17 01/21/17 04:00 History Active Meds: Active Medications Acetaminophen (Tylenol) 650 mg PO Q4H PRN PRN Reason: Pain, Mild (1-3)/Fever > 100.5 Acetaminophen/Hydrocodone Bitart ([place] 5/325) 2 each PO Q4H PRN PRN Reason: Pain, Moderate (4-6) Last Admin: 01/22/17 09:02 Dose: 2 each Amlodipine Besylate (Norvasc) 10 mg PO BID ROGE Last Admin: 01/22/17 11:54 Dose: 10 mg Clonidine HCl (Catapres) 0.1 mg PO TID ROGE Last Admin: 01/22/17 15:19 Dose: 0.1 mg Colchicine (Colcrys) 0.6 mg PO TID PRN PRN Reason: GOUT Hydromorphone HCl (Dilaudid) 1 mg IV Q4H PRN PRN Reason: Pain Sodium Chloride (Nacl 0.9% 1000 Ml) 1,000 mls @ 100 mls/hr IV DIRECT ROGE Last Admin: 01/21/17 22:10 Dose: 100 mls/hr Sodium Chloride (Nacl 0.9% 1000 Ml) 1,000 mls @ 100 mls/hr IV DIRECT ROGE Last Admin: 01/22/17 08:58 Dose: 100 mls/hr Lorazepam (Ativan) 0.5 mg PO Q8H PRN PRN Reason: Anxiety Morphine Sulfate (Morphine) 4 mg IV Q4H PRN PRN Reason: Pain , Severe (7-10) Last Admin: 01/21/17 20:01 Dose: 4 mg Multivitamins/Minerals (Theragran-M Tab) 1 each PO QDAY ROGE Last Admin: 01/22/17 11:55 Dose: 1 each Ondansetron HCl (Zofran) 4 mg IV Q8H PRN PRN Reason: Nausea And Vomiting Last Admin: 01/21/17 13:43 Dose: 4 mg Prazosin HCl (Minipress) 5 mg PO HS ROGE Last Admin: 01/21/17 21:26 Dose: 5 mg Zolpidem Tartrate (Ambien) 5 mg PO QHS PRN PRN Reason: Sleep Review of Systems Constitutional: no fever, no chills, no sweats Cardiovascular: no syncope Respiratory: no shortness of breath, no dyspnea on exertion Gastrointestinal: no abdominal pain, no nausea, no vomiting, no diarrhea Integumentary: no rash Neurological: no weakness Exam - Vital Signs Vital signs: Vital Signs Temp Pulse Resp BP 97.1 F L 78 18 140/70 01/18/17 09:20 01/18/17 09:20 01/18/17 09:20 01/18/17 09:20 - General Appearance General appearance: well-developed, well-nourished EENT: ATNC Neck: Present: neck supple Respiratory: Clear to Ascultation Heart: regular Gastrointestinal: Present: normal, normoactive bowel sounds. Absent: tenderness , distended, masses, guarding Integumentary: no rash Neurologic: no focal deficit, alert and oriented x3 Musculoskeletal: Present: other (no edema) Psychiatric: mood/affect appropriate, cooperative Results - Lab Results 01/22/17 08:14 01/22/17 08:14 Most recent lab results Calcium 8.6 mg/dL (8.4-10.2) 01/22/17 08:14 Assessment and Plan Impression: * Stage IV/V CKD * s/p Robotic prostatectomy * Hyperkalemia, mild * Hypertension Plan: * Patient last seen in office in September 2016. He did not return for 4 week follow up. He has been referred to vascular surgery for AV access placement but has failed to follow through with appointments. At last office visit in September, patient's SCr was 5.2mg/dL. Overall, his renal function is stable. He has no symptoms of uremia/fluid overload * Will order Kayexelate 30g x 1 dose * Handout for dietary K restriction reviewed and provided to patient * Importance of sodium/K restricted diet addressed * Will arrange one week follow up with SC[facility] * Stable for d/c from a renal standpoint
[2017-01-22] MEDS ORDERED: KIONEX PO ONE (16:30)
== END 2017-01-22 18:00 | disposition home or self-care (01) | DRG 707 ==
LOC: 3A 01-21 05:39 → EDSTATUS 01-21 08:00 → 2B-SURG 01-21 12:31
PROVIDERS: ADMIT Urology; ATTEND Urology
PROC: 0VT04ZZ Resection of Prostate, Percutaneous Endoscopic Approach (ICD-10-PCS; principal; 2017-01-21)
PROC: 8E0W4CZ Robotic Assisted Procedure of Trunk Region, Percutaneous Endoscopic Approach (ICD-10-PCS; 2017-01-21)
DX: C61 Malignant neoplasm of prostate (principal); I13.0 Hypertensive heart and chronic kidney disease with heart failure and stage 1 through stage 4 chronic kidney disease, or unspecified chronic kidney disease; N18.5 Chronic kidney disease, stage 5; E66.9 Obesity, unspecified; N28.9 Disorder of kidney and ureter, unspecified; I50.9 Heart failure, unspecified; M10.9 Gout, unspecified; E87.5 Hyperkalemia; Z82.49 Family history of ischemic heart disease and other diseases of the circulatory system; Z68.31 Body mass index [BMI] 31.0-31.9, adult
CPT/HCPCS: 36415; 64450; 80048; 80053; 85025; 85610; 85730; 86850; 86900; 86901; 88309; A4217; J0690; J1100; J1170; J2250; J2270; J2405; J2704; J2710; J3010; J7030

== ENCOUNTER 2017-04-01 16:44 | Emergency (ER) | payer BC, MEDICARE | END 2017-04-01 18:20 | disposition left against medical advice (07) | LOC: ED 16:44 | DX: R79.9 Abnormal finding of blood chemistry, unspecified (principal); Z53.21 Procedure and treatment not carried out due to patient leaving prior to being seen by health care provider ==

== ENCOUNTER 2017-07-16 05:41 | Day surgery (SDC) | payer BC, MEDICARE ==
[2017-07-16] MEDS ORDERED: ANCEF/STERILE WATER 2 GM/20 ML 2 GM/20 ML SYRINGE IV NR (06:00)
[2017-07-16] MEDS ORDERED: NACL 0.9% 1000 ML 1,000 ML IV SCH (06:00)
[2017-07-16] MEDS ORDERED: NACL BACTERIOSTATIC INFILTRATI ONE (06:34)
--- NOTE | 2017-07-16 07:10 | Anesthesia Day of Surgery ---
Anesthesia Day of Surgery - Day of Surgery Patient Examined: Yes Patient H&P Reviewed: Yes Patient is NPO: Yes
--- NOTE | 2017-07-16 07:13 | Anesthesia Consultation ---
Anesthesia Consult and Med Hx Date of service: 07/16/17 - Airway Anesthetic Teeth Evaluation: Good ROM Head & Neck: Adequate Mental/Hyoid Distance: Adequate Mallampati Class: Class II Intubation Access Assessment: Good - Pulmonary Exam CTA: Yes - Cardiac Exam Cardiac Exam: RRR - Pre-Operative Health Status ASA Pre-Surgery Classification: ASA4 Proposed Anesthetic Plan: General - Cardiovascular System Hx Hypertension: Yes (x 15 yrs) Hx Cardia Arrhythmia: No (h/o A.fib per chart. patient denies) - Central Nervous System Hx Neuromuscular Disorder: No (Gout) Hx Seizures: No CVA: No Hx Psychiatric Problems: No - Gastrointestinal Hx Gastroesophageal Reflux Disease: No - Endocrine Hx Renal Disease: Yes Hx End Stage Renal Disease: Yes (on HD M/W/F last HD on 07/15/17) Hx Non-Insulin Dependent Diabetes: No - Other Systems Hx Cancer: Yes (h/o prostrate cancer. s/p robotic prostrtatectomy in 02/10) - Additional Comments Anesthesia Medical History Comments: Informed consent obtained
[2017-07-16] MEDS ORDERED: SUBLIMAZE IV PRN (07:14)
[2017-07-16 07:19] LABS: Basophils # (Auto) 0.1 K/mm3 (0.0-0.1); Basophils % (Auto) 1.2 % (0.0-1.8); Eosinophils # (Auto) 0.2 K/mm3 (0.0-0.4); Hemoglobin 12.4 gm/dl (11.8-15.2); Lymphocytes # (Auto) 1.9 K/mm3 (1.2-5.4); Lymphocytes % (Auto) 35.1 % (13.4-35.0); Mean Corpuscular HGB Conc 33 % (32-34); Mean Corpuscular Hemoglobin 30 pg (28-32); Mean Corpuscular Volume 93 fl (84-94); Monocytes # (Auto) 0.5 K/mm3 (0.0-0.8); Monocytes % (Auto) 9.2 % (0.0-7.3); Platelet Count 270 K/mm3 (140-440); Red Blood Count 4.11 M/mm3 (3.65-5.03); Red Cell Distribution Width 14.4 % (13.2-15.2)
[2017-07-16] MEDS ORDERED: PROTAMINE SULFATE ONE (07:22)
[2017-07-16] MEDS ORDERED: PAPAVERINE ONE (07:22)
[2017-07-16] MEDS ORDERED: MARCAINE 0.5% INFILTRATI ONE ×2 (07:22→08:51)
[2017-07-16] MEDS ORDERED: NACL 0.9% 250ML 250 ML ONE (07:23)
[2017-07-16] MEDS ORDERED: HEPARIN 10,000 UNITS/10 ML ONE (07:23)
[2017-07-16 07:34] LABS: Calcium 9.1 mg/dL (8.4-10.2)
[2017-07-16] MEDS ORDERED: PEPCID IV NR (08:00)
[2017-07-16] MEDS ORDERED: VERSED IV NR (08:00)
[2017-07-16] MEDS ORDERED: DIPRIVAN 10 MG/ML IV ONE (08:15)
[2017-07-16] MEDS ORDERED: ePHEDrine SULFATE ONE (08:34)
[2017-07-16] MEDS ORDERED: XYLOCAINE MPF 2% ONE (08:40)
[2017-07-16] MEDS ORDERED: NACL 0.9% IR ONE (08:51)
[2017-07-16] MEDS ORDERED: HEPARIN 10,000 UNITS/10 ML 1,000 UNIT in NACL 0.9% 250ML 250 ML IR ONE (08:51)
--- NOTE | 2017-07-16 10:16 | Short Stay Summary ---
Short Stay Documentation Date of service: 07/16/17 Narrative H&P: See H&P - History H&P: obtained from office - Allergies and Medications Current Medications: Allergies No Known Allergies Allergy (Verified 07/15/17 15:59) Home Medications Medication Instructions Recorded Confirmed Last Taken Type cloNIDine [Catapres] 0.1 mg PO TID 01/04/17 07/16/17 07/16/17 04:00 History Mv-Min/Folic/Vit K/Lycop/Coq10 1 each PO QDAY 01/21/17 07/15/17 07/15/17 History [Daily Multivitamin Capsule] amLODIPine [Norvasc] 10 mg PO BID 01/21/17 07/15/17 07/15/17 History Furosemide [Lasix] 80 mg PO Q48H 07/15/17 07/16/17 07/14/17 History Active Medications Famotidine (Pepcid) 20 mg IV PREOP NR Stop: 07/16/17 23:59 Last Admin: 07/16/17 07:51 Dose: 20 mg Fentanyl (Sublimaze) 50 mcg IV Q5MIN PRN PRN Reason: Pain , Severe (7-10) Stop: 07/16/17 12:00 Cefazolin Sodium (Ancef/Sterile Water 2 Gm/20 Ml) 2 gm in 20 mls @ 80 mls/hr IV PREOP NR PRN Reason: Protocol Stop: 07/16/17 23:59 Sodium Chloride (Nacl 0.9% 1000 Ml) 1,000 mls @ 42 mls/hr IV DIRECT ROGE Last Admin: 07/16/17 06:45 Dose: 42 mls/hr Midazolam HCl (Versed) 2 mg IV PREOP NR Stop: 07/16/17 23:59 - Brief post op/procedure progress note Date of procedure: 07/16/17 Pre-op diagnosis: ESRD Post-op diagnosis: same Procedure: Creation of Left Brachiobasilic Arteriovenous Fistula Anesthesia: GETA Surgeon: ISACC CORNEJO Estimated blood loss: minimal Pathology: none Condition: stable - Disposition Condition at discharge: Good Disposition: DC-01 TO HOME OR SELFCARE Short Stay Discharge Plan Activity: other (No heavy lifting with left arm) Wound: open to air, keep clean and dry, other (Okay to wash the arm with soap and water but do not soak in water) Follow up with: ISACC CORNEJO MD [Staff Physician] - 14 Days Prescriptions: HYDROcodone/APAP 7.5-325 [[place] 7.5/325] 1 each PO Q6HR PRN #40 tablet PRN Reason: Pain
--- NOTE | 2017-07-16 10:45 | Operative Report ---
Operative Report Operative Report: Date of procedure: 07/16/2017 Pre-operative diagnosis: End-stage Renal Disease Post-operative diagnosis: End-stage Renal Disease Procedure(s): Creation of Left Brachial Artery to Basilic Arteriovenous Fistula Surgeon: Klaus Ayoub MD Dehairing Machine Tender: None Anesthesia: Gen. Endotracheal Anesthesia EBL: Minimal Counts: Correct Complications: None Condition: Stable Findings: Successful creation of left brachiobasilic arteriovenous fistula with palpable thrill at the completion of the case. Specimen: None Indication: The patient is a 67 year old male with a history of end stage renal disease that is currently on hemodialysis through a right internal jugular permacath. He is in need halfway dialysis access and had a vein mapping that demonstrated that he is and adequate candidate for creation of a left upper extremity arteriovenous fistula. He was given the risk, benefits, and alternative procedure and consented to the procedure. Description of Procedure: The patient was brought to the operating room and laid in supine position after general endotracheal anesthesia was administered the patient was prepped and draped in normal sterile fashion. After anesthetizing the skin a transverse incision was created just below the antecubital crease. Dissection was carried down to the the basilic vein using sharp dissection. The vein was dissected out both proximally and distally and suture ligated and divided distally. I then ran a 3 Jenny proximally in the vein, to ensure patency of the vein. I then flushed the vein with heparinized saline and controlled flow with a bulldog clamp. I then dissected out the brachial artery through this incision circumferentially both proximal and distal and controlled the artery with DeBakey Clamps. I created an arteriotomy using an 11 blade and Sánchez scissors. I then placed a U stitch, using a 6-0 Prolene, at the heel of the anastomosis and an interrupted suture at the toe of the anastomosis using a 6-0 Prolene. I then placed interrupted sutures at the 3:00 and 9 o'clock position using 6-0 Prolene. All sutures were left long and on a rubber-shod so that they could be manipulated to allow eversion of the suture line and placement of the LeMaitre AnastoClips. The sutures were manipulated allowing eversion of the suture line and the nontraumatic pickups were used to maintain the eversion. The AnastoClips were then used to complete the anastomosis. Prior to completing the anastomosis I flushed the artery both proximally and distally as well as the vein. I then completed the anastomosis and removed all vessel loops allowing flow into the fistula which had an excellent thrill. I achieved hemostasis at the anastomosis with 6-0 Prolene in interrupted fashion as well as with quick clot. Once hemostasis was achieved I anesthetized the wound with 0.5% Marcaine. I closed the wound in 2 layers using 3-0 Vicryl in a running fashion to close the deep dermal layer and 4-0 Monocryl in a running fashion in the subcuticular layer. I dressed the wound with Surgicel. The patient tolerated the procedure well, all sponge needle and instrument counts were correct. The patient was taken to recovery in stable condition.
[2017-07-16] MEDS ORDERED: NORCO 7.5/325 PO ONE (11:13)
[2017-07-16 12:11] VITALS: BP 116/64
--- NOTE | 2017-07-16 14:14 | Post Anesthesia Evaluation ---
- Post Anesthesia Evaluation Patient Participated: Yes Airway Patent: Yes Stable Respiratory Function: Yes Nausea/Vomiting: No Temp > 96.8F: Yes Pain Manageable: Yes Adequeate Hydration: Yes Anesthesia Complications: No
== END 2017-07-16 12:09 | disposition home or self-care (01) ==
LOC: OR 05:41
PROVIDERS: ATTEND Surgery Vascular Surgery
DX: I12.0 Hypertensive chronic kidney disease with stage 5 chronic kidney disease or end stage renal disease (principal); N18.6 End stage renal disease; M10.9 Gout, unspecified; I10 Essential (primary) hypertension; Z79.899 Other long term (current) drug therapy; Z98.890 Other specified postprocedural states; Z85.46 Personal history of malignant neoplasm of prostate
CPT/HCPCS: 36415; 36821; 80048; 82962; 85025; J0690; J1644; J2704; J7030; J7050; J2440; J2720

== ENCOUNTER 2017-10-08 07:50 | Day surgery (SDC) | payer BC, MEDICARE ==
[~2017-10-08 07:50] MED LIST: ANCEF/STERILE WATER 2 GM/20 ML 2 GM/20 ML SYRINGE IV NR; DILAUDID IV PRN; HEPARIN 10,000 UNITS/10 ML ONE; MARCAINE 0.5% 30 ML INFILTRATI ONE; NACL 0.9% 1000 ML 1,000 ML IV SCH; NACL 0.9% 250ML 250 ML ONE; PERCOCET 5/325 PO PRN; ZOFRAN IV PRN
[2017-10-08] MEDS ORDERED: VERSED IV NR (08:00)
[2017-10-08] MEDS ORDERED: NACL BACTERIOSTATIC INFILTRATI ONE (09:03)
[2017-10-08 09:39] LABS: Basophils # (Auto) 0.1 K/mm3 (0.0-0.1); Basophils % (Auto) 0.7 % (0.0-1.8); Eosinophils # (Auto) 0.3 K/mm3 (0.0-0.4); Hematocrit 36.7 % (35.5-45.6); Hemoglobin 12.1 gm/dl (11.8-15.2); Lymphocytes % (Auto) 24.4 % (13.4-35.0); Mean Corpuscular HGB Conc 33 % (32-34); Mean Corpuscular Hemoglobin 31 pg (28-32); Mean Corpuscular Volume 95 fl (84-94); Monocytes # (Auto) 0.8 K/mm3 (0.0-0.8); Monocytes % (Auto) 9.5 % (0.0-7.3); Red Blood Count 3.86 M/mm3 (3.65-5.03); Red Cell Distribution Width 14.3 % (13.2-15.2)
[2017-10-08 09:49] LABS: Platelet Count 315 K/mm3 (140-440)
--- NOTE | 2017-10-08 09:52 | Anesthesia Day of Surgery ---
Anesthesia Day of Surgery - Day of Surgery Patient Examined: Yes Patient H&P Reviewed: Yes Patient is NPO: Yes
--- NOTE | 2017-10-08 09:52 | Anesthesia Consultation ---
Anesthesia Consult and Med Hx Date of service: 10/08/17 - Airway Anesthetic Teeth Evaluation: Dentures ROM Head & Neck: Adequate Mental/Hyoid Distance: Adequate Mallampati Class: Class II Intubation Access Assessment: Probably Good - Pulmonary Exam CTA: Yes - Cardiac Exam Cardiac Exam: RRR - Pre-Operative Health Status ASA Pre-Surgery Classification: ASA4 Proposed Anesthetic Plan: General - Cardiovascular System Hx Hypertension: Yes (x 15 yrs) Hx Cardia Arrhythmia: No (h/o A.fib per chart. patient denies) - Central Nervous System Hx Neuromuscular Disorder: No (Gout) Hx Psychiatric Problems: No - Gastrointestinal Hx Gastroesophageal Reflux Disease: No - Endocrine Hx Renal Disease: Yes Hx End Stage Renal Disease: Yes (dialysis MWF) Hx Non-Insulin Dependent Diabetes: No - Other Systems Hx Cancer: Yes
[2017-10-08 09:53] LABS: Calcium 9.4 mg/dL (8.4-10.2)
[2017-10-08] MEDS ORDERED: DIPRIVAN 10 MG/ML IV ONE (11:29)
[2017-10-08] MEDS ORDERED: SUBLIMAZE ONE (11:29)
[2017-10-08] MEDS ORDERED: XYLOCAINE CARDIAC IV ONE (11:29)
[2017-10-08] MEDS ORDERED: ZOFRAN ONE (12:40)
[2017-10-08] MEDS ORDERED: NEO SYNEPHRINE/NS Syringe(OR USE) IV ONE ×2 (12:40→13:31)
[2017-10-08] MEDS ORDERED: NACL 0.9% IR ONE (13:13)
[2017-10-08] MEDS ORDERED: MARCAINE 0.5% INFILTRATI ONE ×2 (13:13)
[2017-10-08] MEDS ORDERED: HEPARIN 10,000 UNITS/10 ML 2,000 UNIT in NACL 0.9% 500 ML 500 ML IR ONE (13:14)
--- NOTE | 2017-10-08 14:42 | Short Stay Summary ---
Short Stay Documentation Date of service: 10/08/17 Narrative H&P: See H&P - History H&P: obtained from office - Allergies and Medications Current Medications: Allergies No Known Allergies Allergy (Verified 10/04/17 15:55) Home Medications Medication Instructions Recorded Confirmed Last Taken Type Mv-Min/Folic/Vit K/Lycop/Coq10 1 each PO QDAY 01/21/17 10/08/17 10/07/17 History [Daily Multivitamin Capsule] amLODIPine [Norvasc] 10 mg PO BID 01/21/17 10/08/17 10/07/17 History Furosemide [Lasix] 80 mg PO Q48H 07/15/17 10/08/17 10/07/17 History hydrALAZINE [Apresoline TAB] 100 mg PO TID 10/08/17 10/08/17 10/08/17 07:00 History Active Medications Hydromorphone HCl (Dilaudid) 0.25 mg IV Q10MIN PRN PRN Reason: Pain, Moderate (4-6) Stop: 10/08/17 16:00 Cefazolin Sodium (Ancef/Sterile Water 2 Gm/20 Ml) 2 gm in 20 mls @ 80 mls/hr IV PREOP NR; Protocol Stop: 10/08/17 23:59 Sodium Chloride (Nacl 0.9% 1000 Ml) 1,000 mls @ 42 mls/hr IV DIRECT ROGE Last Admin: 10/08/17 09:34 Dose: 42 mls/hr Midazolam HCl (Versed) 2 mg IV PREOP NR Stop: 10/08/17 23:59 Ondansetron HCl (Zofran) 4 mg IV ONCE PRN PRN Reason: Nausea And Vomiting Oxycodone/Acetaminophen (Percocet 5/325) 1 tab PO ONCE PRN PRN Reason: Pain, Moderate (4-6) Stop: 10/08/17 16:00 - Brief post op/procedure progress note Date of procedure: 10/08/17 Pre-op diagnosis: Complications of Dialysis Access Post-op diagnosis: same Procedure: Revision with elevation of left brachiobasilic arteriovenous fistula Anesthesia: SHARIF Surgeon: ISACC CORNEJO Pathology: none Condition: stable - Disposition Condition at discharge: Good Disposition: DC-01 TO HOME OR SELFCARE Short Stay Discharge Plan Activity: other (no heavy lifting with left arm) Wound: open to air, keep clean and dry, other (okay to wash the wound with soap and water but do not soak in water) Follow up with: ISACC CORNEJO MD [Staff Physician] - 14 Days Prescriptions: HYDROcodone/APAP 7.5-325 [[place] 7.5/325] 1 each PO Q6HR PRN #40 tablet PRN Reason: Pain
--- NOTE | 2017-10-08 14:50 | Operative Report ---
Operative Report Operative Report: Date of procedure: 10/08/2017 Pre-operative diagnosis: Complications of Dialysis Access Post-operative diagnosis: Same Procedure(s): Revision with Elevation of Left Brachiobasilic AV Fistula Surgeon: Klaus Ayoub MD Carpentry Supervisor: None Anesthesia: General Endotracheal Anesthesia EBL: Minimal Counts: Correct Complications: None Condition: Stable Findings: Successful elevation of left brachiobasilic fistula with excellent thrill. Specimen: None Indication: The patient is a 67-year-old male with history of end-stage renal disease was currently on hemodialysis through a permacath. He had creation of a left brachiobasilic arteriovenous fistula and is in need of revision with elevation. He was given the risks, benefits, and alternative procedures and consented to procedure. Description of Procedure: The patient was brought to the operating room and laid in supine position after general endotracheal anesthesia was achieved her left arm was prepped and draped in normal sterile fashion. A longitudinal incision was then created on the medial aspect of the arm centered over the fistula extending from the axillary crease to the antecubital crease. Sharp dissection was used to continue the dissection down to the fistula. The fistula was then dissected circumferentially and all side branches were suture ligated and divided. A Cyndee-Wick tunneler was then used to tunnel from the distal part of the incision towards the proximal portion of the incision and a lateral and slightly curved direction. The fistula was then marked on the anterior surface , the inflow was controlled with a DeBakey, clamp and the outflow was controlled with bulldog clamps. This vessel was then divided near the arterial inflow and secured to the Cyndee-Wick tunneler with 2-0 silk and then pulled retrograde through the tunnel. I flushed the venous outflow with heparinized saline to assure that there was no evidence of twist or kinks. I then performed an end-to-end anastomosis between the proximal and distal ends using Lemaitre AnasaClips. I used 6-0 Prolene in U-Stitch fashion and placed then at the heel and toe of the anastamosis. I then used 6-0 Prolene to placed a single interrupted stitch at the 3:00 and 9:00 position of the anastamosis. I used the eversion pickups to tangela the suture line and the completed the anastomosis using the AnastaClips in the 4 quadrants. Prior to completing the anastomosis I flushed the arterial inflow of the fistula to ensure there was no clot or debris. I then completed the anastomosis and removed all clamps allowing flow through the fistula which had a palpable thrill. I achieved hemostasis in the wound with a combination of direct pressure and electrocautery. I then anesthetized the wound with 0.5% Marcaine and closed the wound in 2 layers using a 3-0 Vicryl in running fashion in the deep dermal layer and a 4-0 Monocryl in running fashion in the subcuticular layer. I then dressed the wound with Dermabond. The patient tolerated the procedure well, all sponge needle and instrument counts were correct, the patient was taken to the recovery area in stable condition.
[2017-10-08 16:00] VITALS: BP 132/72
== END 2017-10-08 16:15 | disposition home or self-care (01) ==
LOC: OR 07:50
PROVIDERS: ATTEND Surgery Vascular Surgery
DX: T82.898A Other specified complication of vascular prosthetic devices, implants and grafts, initial encounter (principal); I13.2 Hypertensive heart and chronic kidney disease with heart failure and with stage 5 chronic kidney disease, or end stage renal disease; N18.6 End stage renal disease; I50.9 Heart failure, unspecified; Y83.2 Surgical operation with anastomosis, bypass or graft as the cause of abnormal reaction of the patient, or of later complication, without mention of misadventure at the time of the procedure; Z85.46 Personal history of malignant neoplasm of prostate
CPT/HCPCS: 36415; 36832; 80048; 85025; C1757; J0690; J1644; J2001; J2370; J2405; J2704; J3010; J7030; J7040; J7050